=== PATIENT | female | born 1940 | race Caucasian/White ===

== ENCOUNTER → 2022-07-09 | Outpatient (CLI) | payer MEDICARE | END | disposition home or self-care (01) | LOC: CT 14:08 | PROVIDERS: ATTEND Internal Medicine Nephrology | DX: S72.011A Unspecified intracapsular fracture of right femur, initial encounter for closed fracture (principal); S39.003A Unspecified injury of muscle, fascia and tendon of pelvis, initial encounter; M48.061 Spinal stenosis, lumbar region without neurogenic claudication; M47.816 Spondylosis without myelopathy or radiculopathy, lumbar region; M25.451 Effusion, right hip; M16.11 Unilateral primary osteoarthritis, right hip; X58.XXXA Exposure to other specified factors, initial encounter; Y93.89 Activity, other specified; Y92.89 Other specified places as the place of occurrence of the external cause; Y99.8 Other external cause status | CPT/HCPCS: 72192; 73700; 73721 ==

== ENCOUNTER 2024-10-12 21:20 | Inpatient (IN) | payer MEDICARE, OTHER ==
[~2024-10-12] VITALS: Ht 149.9 cm; Wt 66.7 kg
[2024-10-12 21:15] VITALS: BP 147/57; PULSE 60; RESP 18; TEMP 36.78072; O2SAT 97
[2024-10-12] MEDS ORDERED: NALOXONE HCL 0.4MG/ML VIAL IV PRN (21:45)
[2024-10-12] MEDS ORDERED: ALPRAZOLAM 0.25 MG TABLET PO PRN (21:45)
[2024-10-12 22:00] VITALS: BP 147/57; PULSE 60; RESP 18; TEMP 36.8072
[2024-10-12] MEDS: HYDROMORPHONE HCL/PF 1MG/ML INJ SUBCUT PRN (22:06)
[2024-10-12] MEDS: ATORVASTATIN CALCIUM 10MG TABLET PO SCH (22:49)
[2024-10-12] MEDS: DOCUSATE SODIUM 100MG CAPSULE PO SCH (22:49)
[2024-10-13] MEDS: OXYCODONE HCL 5MG TABLET PO PRN (02:53)
[2024-10-13 06:19] LABS: CHLORIDE 98 mEq/L (98-107); SODIUM 128 mEq/L (136-145)
[2024-10-13 06:22] LABS: CARBON DIOXIDE 24 mEq/L (21-32)
[2024-10-13 06:27] LABS: CREATININE 0.7 mg/dL (0.6-1.0); GLUCOSE 121 mg/dL (70-105); UREA NITROGEN BLOOD 14 mg/dL (9-23)
[2024-10-13 06:29] LABS: ALANINE AMINOTRANSFERASE 8 IU/L (10-49); ALBUMIN 3.8 g/dL (3.2-4.8); ASPARTATE AMINOTRANSFERASE 20 IU/L (<34); BILIRUBIN TOTAL 0.6 mg/dL (0.1-1.0); PREALBUMIN 6.3 mg/dl (10.0-40.0); PROTEIN TOTAL 6.2 g/dL (6.0-8.3)
[2024-10-13 06:40] LABS: INR 1.1; PROTHROMBIN TIME 12.4 sec (9.6-11.0)
[2024-10-13 06:52] LABS: HEMATOCRIT. 28.1 % (36.0-48.0); HEMOGLOBIN. 9.5 g/dL (12.0-16.0); MEAN CORPUSCULAR HEMOGLOBIN 29.4 pg (28.0-32.0); MEAN CORPUSCULAR HGB CONC 33.8 g/dL (31.0-37.0); MEAN PLATELET VOLUME 7.4 fl (7.4-10.4); PLATELET 244 x1000/uL (130-400); RED BLOOD CELL COUNT 3.23 mill/uL (4.2-5.4); RED CELL DISTRIBUTION WIDTH 15.6 % (11.6-14.6); WHITE BLOOD COUNT 9.8 x1000/uL (4.5-11.0)
[2024-10-13 08:00] VITALS: BP 142/46; PULSE 69; RESP 18; TEMP 36.22512; O2SAT 97
[2024-10-13 08:07] LABS: DIFFERENTIAL COMMENT 1
[2024-10-13] MEDS: AMIODARONE 200MG TABLET PO SCH (08:58)
[2024-10-13] MEDS: ENOXAPARIN 80MG/0.8ML SYR SUBCUT SCH (09:00)
[2024-10-13] MEDS: OXYCODONE HCL 5MG TABLET PO SCH (11:31)
[2024-10-13 13:44] LABS: PLATELET ESTIMATE NORMAL
[2024-10-13 13:45] LABS: ANISOCYTOSIS 1+
[2024-10-13] MEDS ORDERED: MAGNESIUM HYDROXIDE 400MG/5ML 30ML UDC PO PRN (17:30)
[2024-10-13] MEDS ORDERED: WARFARIN SODIUM 5MG TABLET PO SCH (18:00)
[2024-10-13] MEDS: WARFARIN SODIUM 5MG TABLET PO SCH (18:03)
[2024-10-13 20:00] VITALS: BP 156/52; PULSE 58; RESP 18; TEMP 36.114; O2SAT 99
[2024-10-14 01:30] LABS: CLARITY URINE CLEAR (CLEAR); COLOR URINE YELLOW (YELLOW); GLUCOSE URINE NEGATIVE (NEGATIVE); KETONES URINE NEGATIVE (NEGATIVE); LEUKOCYTE ESTERASE URINE TRACE (NEGATIVE); NITRITE URINE POSITIVE (NEGATIVE); OCCULT BLOOD URINE 1+ (NEGATIVE); PROTEIN URINE 1+ (NEGATIVE); SPECIFIC GRAVITY URINE 1.013 (1.005-1.030); UROBILINOGEN URINE 0.2 E.U./dL (0.2-1.0)
[2024-10-14 02:57] LABS: RBC URINE 0-2 /hpf (0-2); SQUAMOUS EPITHELIAL CELL URINE NONE SEEN /lpf (RARE/1+)
[2024-10-14 02:58] LABS: BACTERIA URINE 3+
[2024-10-14 06:28] LABS: INR 1.1; PROTHROMBIN TIME 12.5 sec (9.6-11.0)
[2024-10-14 06:39] LABS: CARBON DIOXIDE 27 mEq/L (21-32); CHLORIDE 98 mEq/L (98-107); POTASSIUM 4.6 mEq/L (3.5-5.1); SODIUM 131 mEq/L (136-145)
[2024-10-14 06:40] LABS: CALCIUM 9.4 mg/dL (8.7-10.4)
[2024-10-14 06:42] LABS: CREATININE 0.8 mg/dL (0.6-1.0)
[2024-10-14 06:44] LABS: IRON 20 ug/dL (50-170); THYROID STIMULATING HORMONE 2.09 uIU/mL (0.55-4.78)
[2024-10-14 06:45] LABS: GLUCOSE 95 mg/dL (70-105); UREA NITROGEN BLOOD 13 mg/dL (9-23)
[2024-10-14 06:47] LABS: TOTAL IRON BINDING CAPACITY 554 ug/dl (250-425)
[2024-10-14 07:05] LABS: FERRITIN 174 ng/mL (10-291)
[2024-10-14 07:13] LABS: FOLIC ACID (FOLATE) SERUM > 20.00 ng/mL (>5.38); VITAMIN B12 SERUM 1094 pg/mL (211-911)
[2024-10-14 07:51] LABS: BASOPHILS % 0.4 % (0.0-2.0); EOSINOPHILS % 4.9 % (0.0-5.0); HEMATOCRIT 29.3 % (36.0-48.0); HEMATOCRIT. 29.3 % (36.0-48.0); HEMOGLOBIN 9.9 g/dL (12.0-16.0); HEMOGLOBIN. 9.9 g/dL (12.0-16.0); LYMPHOCYTES % 12.6 % (20.0-50.0); MEAN CORPUSCULAR HEMOGLOBIN 29.7 pg (28.0-32.0); MEAN CORPUSCULAR HGB CONC 33.8 g/dL (31.0-37.0); MEAN CORPUSCULAR VOLUME 87.9 fL (81.0-99.0); MEAN PLATELET VOLUME 7.5 fl (7.4-10.4); NEUTROPHILS % 68.1 % (40.0-76.0); PLATELET 297 x1000/uL (130-400); RED BLOOD CELL COUNT 3.34 mill/uL (4.2-5.4); RED CELL DISTRIBUTION WIDTH 15.9 % (11.6-14.6); WHITE BLOOD COUNT 8.7 x1000/uL (4.5-11.0)
[2024-10-14 08:00] VITALS: BP 140/63; PULSE 70; RESP 18; TEMP 36.50292; O2SAT 98
[2024-10-14] MEDS: BISACODYL 10MG SUPP PR NR (12:15)
[2024-10-14] MEDS ORDERED: MINERAL OIL ENEMA 133ML PR NR (12:15)
[2024-10-14] MEDS: ACETAMINOPHEN WITH CODEINE 300/30MG TABLET PO PRN (12:46)
[2024-10-14] MEDS: MAGNESIUM OXIDE 400MG TABLET PO SCH (14:53)
[2024-10-14] MEDS: FERROUS SULFATE 325MG TABLET PO SCH (14:54)
[2024-10-14] MEDS: LIDOCAINE 5% PATCH TOP SCH (14:56)
[2024-10-14] MEDS: WARFARIN SODIUM 5MG TABLET PO SCH (18:05)
[2024-10-14] MEDS: DICLOFENAC SODIUM 1% GEL 50GM TOP SCH (18:06)
[2024-10-14 21:20] VITALS: BP 154/48; PULSE 64; RESP 18; TEMP 36.50292; O2SAT 98
[2024-10-14] MEDS: NITROFURANTOIN 100MG M/M CAPSULE PO SCH (21:54)
[2024-10-14] MEDS: HYDROMORPHONE HCL/PF 1MG/ML INJ SUBCUT SCH (22:02)
[2024-10-15 08:00] VITALS: BP 160/68; PULSE 64; RESP 16; TEMP 37.00296; O2SAT 98
[2024-10-15 08:01] LABS: INR 1.3; PROTHROMBIN TIME 13.9 sec (9.6-11.0)
[2024-10-15 08:07] LABS: CARBON DIOXIDE 25 mEq/L (21-32); CHLORIDE 99 mEq/L (98-107); POTASSIUM 4.5 mEq/L (3.5-5.1); SODIUM 132 mEq/L (136-145)
[2024-10-15 08:09] LABS: CALCIUM 9.6 mg/dL (8.7-10.4)
[2024-10-15 08:13] LABS: CREATININE 0.7 mg/dL (0.6-1.0); GLUCOSE 101 mg/dL (70-105); UREA NITROGEN BLOOD 9 mg/dL (9-23)
[2024-10-15 08:18] LABS: HEMOGLOBIN 10.1 g/dL (12.0-16.0); MEAN CORPUSCULAR HEMOGLOBIN 29.6 pg (28.0-32.0); MEAN CORPUSCULAR HGB CONC 33.7 g/dL (31.0-37.0); MEAN CORPUSCULAR VOLUME 87.8 fL (81.0-99.0); PLATELET 364 x1000/uL (130-400); RED BLOOD CELL COUNT 3.41 mill/uL (4.2-5.4); WHITE BLOOD COUNT 8.1 x1000/uL (4.5-11.0)
[2024-10-15] MEDS: ASCORBIC ACID 500 MG TABLET PO SCH (09:00)
[2024-10-15] MEDS ORDERED: ETHYL CHLORIDE CAN TOP ONE (10:00)
[2024-10-15] MEDS ORDERED: KETOROLAC 30MG/ML VIAL IV ONE (10:00)
[2024-10-15] MEDS ORDERED: LIDOCAINE HCL 1% 20ML VIAL INFIL ONE (10:15)
[2024-10-15] MEDS ORDERED: WARFARIN SODIUM 4MG TABLET PO SCH ×2 (16:15→18:00)
[2024-10-15] MEDS: WARFARIN SODIUM 4MG TABLET PO SCH (18:58)
[2024-10-15 20:00] VITALS: BP 170/63; RESP 18; O2SAT 97
[2024-10-16 08:00] VITALS: BP 141/46; PULSE 60; RESP 20; TEMP 36.3; O2SAT 97
[2024-10-16] MEDS: ENOXAPARIN 60MG/0.6ML SYR SUBCUT SCH (10:54)
[2024-10-16] MEDS: ERGOCALCIFEROL 50000UNITS CAPSULE PO SCH (17:00)
[2024-10-16] MEDS: WARFARIN SODIUM 3MG TABLET PO SCH (17:57)
[2024-10-16] MEDS: WARFARIN SODIUM 4MG TABLET PO SCH (17:57)
[2024-10-16] MEDS ORDERED: WARFARIN SODIUM 5MG TABLET PO SCH (18:00)
[2024-10-16 20:00] VITALS: BP 167/57; PULSE 66; RESP 18; TEMP 34.6; O2SAT 98
[2024-10-16] MEDS ORDERED: WARFARIN SODIUM 7.5MG TABLET PO ONE (22:45)
[2024-10-17 06:43] LABS: INR 2.1; PROTHROMBIN TIME 22.2 sec (9.6-11.0)
[2024-10-17 08:00] VITALS: BP 156/51; PULSE 68; RESP 18; TEMP 36.1; O2SAT 98
[2024-10-17 09:34] VITALS: BP 156/72; PULSE 82; TEMP 97.5; O2SAT 98
[2024-10-17 10:15] VITALS: BP 156/51; PULSE 68; RESP 18
[2024-10-17] MEDS ORDERED: WARFARIN SODIUM 5MG TABLET PO NR (18:00)
[2024-10-18] MEDS ORDERED: ERGOCALCIFEROL 50000UNITS CAPSULE PO SCH (10:45)
[2024-10-19] MEDS ORDERED: WARFARIN SODIUM 5MG TABLET PO SCH (18:00)
== END 2024-10-17 10:30 | disposition home or self-care (01) | DRG 563 ==
PROVIDERS: ADMIT Physical Medicine & Rehabilitation Spinal Cord Injury Medicine; ATTEND Internal Medicine
DX: S52.515A Nondisplaced fracture of left radial styloid process, initial encounter for closed fracture (principal); E87.1 Hypo-osmolality and hyponatremia; I48.20 Chronic atrial fibrillation, unspecified; N39.0 Urinary tract infection, site not specified; S52.615A Nondisplaced fracture of left ulna styloid process, initial encounter for closed fracture; K21.9 Gastro-esophageal reflux disease without esophagitis; E05.00 Thyrotoxicosis with diffuse goiter without thyrotoxic crisis or storm; E78.5 Hyperlipidemia, unspecified; F41.9 Anxiety disorder, unspecified; I10 Essential (primary) hypertension; M65.4 Radial styloid tenosynovitis [de Quervain]; R26.9 Unspecified abnormalities of gait and mobility; W18.39XA Other fall on same level, initial encounter; E83.42 Hypomagnesemia; M19.011 Primary osteoarthritis, right shoulder; D64.9 Anemia, unspecified; R53.81 Other malaise; R00.1 Bradycardia, unspecified; I09.9 Rheumatic heart disease, unspecified; H26.8 Other specified cataract; Z79.01 Long term (current) use of anticoagulants; Z82.49 Family history of ischemic heart disease and other diseases of the circulatory system; Z86.73 Personal history of transient ischemic attack (TIA), and cerebral infarction without residual deficits; Z88.5 Allergy status to narcotic agent; Z91.81 History of falling; Z95.3 Presence of xenogenic heart valve; Y93.89 Activity, other specified; Y92.89 Other specified places as the place of occurrence of the external cause; Y99.8 Other external cause status; Z88.2 Allergy status to sulfonamides; Z88.0 Allergy status to penicillin; Z88.6 Allergy status to analgesic agent; Z79.899 Other long term (current) drug therapy
CPT/HCPCS: 36415; 80048; 80053; 81003; 82306; 82607; 82728; 82746; 83540; 83550; 83735; 84134; 84145; 84443; 85025; 85027; 87186; 92523; 92610; 93005; 93306; 93970; 97110; 97116; 97162; 97166; 97530; 97535; A4663; J1171; J1650

== ENCOUNTER 2024-10-18 09:31 | Inpatient (IN) | payer MEDICARE, OTHER ==
[~2024-10-18] VITALS: Ht 149.9 cm; Wt 66.7 kg
[2024-10-18] MEDS ORDERED: NALOXONE HCL 0.4MG/ML VIAL IV PRN (10:45)
[2024-10-18] MEDS ORDERED: ALPRAZOLAM 0.25 MG TABLET PO PRN (10:45)
[2024-10-18] MEDS ORDERED: OXYCODONE HCL 5MG TABLET PO PRN (10:45)
[2024-10-18] MEDS ORDERED: ONDANSETRON HCL 4MG/2ML INJ IV PRN (10:45)
[2024-10-18] MEDS ORDERED: LORAZEPAM 0.5MG TABLET PO PRN (10:45)
[2024-10-18] MEDS ORDERED: ACETAMINOPHEN 325MG TABLET PO PRN (10:45)
[2024-10-18] MEDS ORDERED: HYDROMORPHONE HCL/PF 2MG/ML INJ SUBCUT PRN (10:45)
[2024-10-18 11:07] VITALS: BP 140/68; PULSE 60; RESP 18; TEMP 36.7
[2024-10-18 12:00] VITALS: BP 154/45; PULSE 75; RESP 19; TEMP 37.1; O2SAT 98
[2024-10-18] MEDS: OXYCODONE HCL/ACETAMINOPHEN 5/325MG TABLET PO PRN (12:12)
[2024-10-18] MEDS: FERROUS SULFATE 325MG TABLET PO SCH (12:13)
[2024-10-18] MEDS: AMIODARONE 200MG TABLET PO SCH (12:13)
[2024-10-18] MEDS: CEPHALEXIN 250MG CAPSULE PO SCH (12:17)
[2024-10-18] MEDS ORDERED: WARFARIN SODIUM 5MG TABLET PO SCH (18:00)
[2024-10-18] MEDS: WARFARIN SODIUM 5MG TABLET PO SCH (18:11)
[2024-10-18 20:00] VITALS: BP 167/51; PULSE 58; RESP 19; TEMP 36.2; O2SAT 99
[2024-10-18] MEDS: ATORVASTATIN CALCIUM 10MG TABLET PO SCH (20:28)
[2024-10-18] MEDS ORDERED: DOCUSATE SODIUM 100MG CAPSULE PO SCH (21:00)
[2024-10-19 08:00] VITALS: BP 121/65; PULSE 64; RESP 20; TEMP 36.6; O2SAT 98
[2024-10-19] MEDS ORDERED: AMIODARONE 200MG TABLET PO SCH (09:00)
[2024-10-19] MEDS: DOCUSATE SODIUM 100MG CAPSULE PO PRN (10:42)
[2024-10-19] MEDS ORDERED: GLYCERIN ADULT SUPPOSITORY PR PRN (10:45)
[2024-10-19] MEDS: DOCUSATE SODIUM 100MG CAPSULE PO SCH (10:45)
[2024-10-19] MEDS: WARFARIN SODIUM 4MG TABLET PO SCH (17:19)
[2024-10-19] MEDS: ERGOCALCIFEROL 50000UNITS CAPSULE PO SCH (17:19)
[2024-10-20 08:00] VITALS: BP 132/48; PULSE 57; RESP 20; TEMP 36.1; O2SAT 99
[2024-10-20] MEDS: WARFARIN SODIUM 4MG TABLET PO SCH (18:13)
[2024-10-20 20:00] VITALS: BP 153/46; PULSE 59; RESP 18; TEMP 36.3; O2SAT 97
[2024-10-21 08:00] VITALS: BP 145/51; PULSE 61; RESP 20; TEMP 36.1; O2SAT 99
[2024-10-21] MEDS ORDERED: WARFARIN SODIUM 5MG TABLET PO SCH (18:00)
[2024-10-21 20:00] VITALS: BP 121/61; PULSE 54; RESP 19; TEMP 36.3; O2SAT 97
[2024-10-21] MEDS: HYDROMORPHONE HCL/PF 1MG/ML INJ SUBCUT PRN (23:16)
[2024-10-22 06:05] LABS: PROTHROMBIN TIME 31.3 sec (9.6-11.0)
[2024-10-22 08:00] VITALS: BP 137/65; PULSE 56; RESP 20; TEMP 36.5; O2SAT 97
[2024-10-22] MEDS ORDERED: WARF4TAB71 PO (08:43)
[2024-10-22 08:59] VITALS: BP 137/65; PULSE 67; TEMP 97.7; O2SAT 97
[2024-10-24] MEDS ORDERED: WARFARIN SODIUM 5MG TABLET PO SCH (18:00)
== END 2024-10-22 09:40 | disposition home health service (06) | DRG 563 ==
LOC: UNDOADMIN 09:31
PROVIDERS: ADMIT Physical Medicine & Rehabilitation Spinal Cord Injury Medicine; ATTEND Internal Medicine
DX: S52.502A Unspecified fracture of the lower end of left radius, initial encounter for closed fracture (principal); E87.1 Hypo-osmolality and hyponatremia; I48.20 Chronic atrial fibrillation, unspecified; W18.39XA Other fall on same level, initial encounter; Y93.89 Activity, other specified; Y92.89 Other specified places as the place of occurrence of the external cause; Y99.8 Other external cause status; E05.00 Thyrotoxicosis with diffuse goiter without thyrotoxic crisis or storm; E55.9 Vitamin D deficiency, unspecified; E61.1 Iron deficiency; E78.5 Hyperlipidemia, unspecified; F41.9 Anxiety disorder, unspecified; H26.9 Unspecified cataract; I10 Essential (primary) hypertension; I48.91 Unspecified atrial fibrillation; K21.9 Gastro-esophageal reflux disease without esophagitis; I09.9 Rheumatic heart disease, unspecified; R00.1 Bradycardia, unspecified; M65.4 Radial styloid tenosynovitis [de Quervain]; R13.10 Dysphagia, unspecified; R53.1 Weakness; M25.532 Pain in left wrist; R26.9 Unspecified abnormalities of gait and mobility; R53.81 Other malaise; Z79.01 Long term (current) use of anticoagulants; Z82.49 Family history of ischemic heart disease and other diseases of the circulatory system; Z86.73 Personal history of transient ischemic attack (TIA), and cerebral infarction without residual deficits; Z88.5 Allergy status to narcotic agent; Z91.81 History of falling; Z95.2 Presence of prosthetic heart valve; Z95.3 Presence of xenogenic heart valve; Z56.0 Unemployment, unspecified
CPT/HCPCS: 36415; 97110; 97116; 97530; 97535; A4606; J1171